=== PATIENT | female | born 1950 | race Caucasian/White ===

== ENCOUNTER → 2024-05-09 | Outpatient (CLI) | payer MEDICARE, MEDICAID, SELFPAY ==
[2024-05-09 12:53] LABS: Misc Send Out* See Sep Rpt
[2024-05-09 13:16] LABS: Basophils % (Auto) 1 % (0-2.5); Eosinophils # (Auto) 0.1 Thou/mm3 (0.0-0.5); Eosinophils % (Auto) 2 % (0-10); Hematocrit 38.4 % (36.0-46.0); Immature Granulocytes % (Auto) 0 % (0-0); Immature Granulocytes Auto 0.01 Thou/mm3 (0.00-0.00); Lymphocytes # (Auto) 1.8 Thou/mm3 (1.0-4.8); Lymphocytes % (Auto) 32 % (10-50); Mean Corpuscular HGB Conc 33.9 g/dl (31.0-37.0); Mean Corpuscular Volume 92 fL (80-100); Monocytes # (Auto) 0.4 Thou/mm3 (0.0-0.8); Monocytes % (Auto) 7 % (0-12); Neutrophils # (Auto) 3.2 Thou/mm3 (1.8-7.7); Neutrophils % (Auto) 59 % (37-80); Nucleated Red Blood Cell % 0 /100 WBC (0); Platelet Count 255 Thou/mm3 (140-440); RDW Standard Deviation 43.7 fL (36.4-46.3); Red Blood Count 4.19 Miln/mm3 (4.00-5.20); White Blood Count 5.5 Thou/mm3 (3.6-11.0)
[2024-05-09 13:27] LABS: Alanine Aminotransferase 15 U/L (10-49); Albumin, Serum 4.7 gm/dL (3.4-4.8); Albumin/Globulin Ratio 2.2 (1.2-2.2); Alkaline Phosphatase 118 U/L (46-116); Anion Gap 8 (7-16); Aspartate Amino Transferase 11 U/L (0-34); BUN/Creatinine Ratio 18 Ratio (12-20); Bilirubin,Total 0.5 mg/dL (0.3-1.2); Blood Urea Nitrogen 14 mg/dL (9-23); Calcium 9.7 mg/dL (8.3-10.6); Calcium (Corrected) 9.7 mg/dL (8.5-10.1); Carbon Dioxide 27.1 mMol/L (20.0-31.0); Chloride 106 mMol/L (98-107); Creatinine (Component) 0.8 mg/dL (0.6-1.3); Globulin 2.1 gm/dL (2.3-3.5); Glucose 217 mg/dL (74-106); Osmolality,Calculated 288 (275-295); Potassium 3.7 mMol/L (3.4-5.1); Sodium 141 mMol/L (136-145); Total Protein 6.8 gm/dL (5.7-8.2); eGFR > 60 See Note
[2024-05-09 13:38] LABS: Sed Rate (ESR) 24 mm/hr (0-30)
[2024-05-17 07:11] LABS: Immunoglobulin A 187 mg/dL (70-320); hs-CRP* 1.1 mg/L; tTG Ab, IgA <1.0 U/mL
== END | disposition home or self-care (01) ==
LOC: COPL 12:27
PROVIDERS: PCP Family Medicine; Referring Provider Specialist; Visit Provider Specialist
DX: R19.7 Diarrhea, unspecified (principal); R14.0 Abdominal distension (gaseous); R10.32 Left lower quadrant pain; R10.31 Right lower quadrant pain
CPT/HCPCS: 36415; 80053; 82784; 85025; 85652; 86021; 86036; 86141; 86364; 86671

== ENCOUNTER 2024-05-19 08:15 | Day surgery (SDC) | payer MEDICARE, MEDICAID, SELFPAY ==
[2024-05-19] VITALS (14 sets, daily range): BP systolic 117–181; BP diastolic 70–104; PULSE 91–112; RESP 10–21; TEMP 36.2–36.6; O2SAT 91–99; BMI 35.7
[2024-05-19] MEDS: DiphenhydrAMINE INJ 50 MG/ML VIAL 25 MG IV (10:35)
[2024-05-19] MEDS: fentaNYL CIT INJ 50 mCg/ML AMP 2ML (ASD USE ONLY) IV (10:50)
[2024-05-19] MEDS: MIDAZOLAM INJ 1 MG/ML VIAL 2 ML (ASD USE ONLY) 2 MG IV (10:57)
[2024-05-19] MEDS: MEPERIDINE INJ 25 MG/ML VIAL (ASD USE ONLY) IV (10:57)
[2024-05-19] MEDS: ONDANSETRON INJ 2 MG/ML INJ 2 ML 4 MG IV (11:20)
== END 2024-05-19 12:20 | disposition home or self-care (01) ==
PROVIDERS: PCP Family Medicine; Referring Provider Specialist; Visit Provider Specialist
PROC: 0DBE8ZX Excision of Large Intestine, Via Natural or Artificial Opening Endoscopic, Diagnostic (ICD-10-PCS; CPT 45380; principal; 2024-05-19 09:00)
PROC: (CPT 43239; 2024-05-19 09:00)
DX: K52.9 Noninfective gastroenteritis and colitis, unspecified (principal); K63.89 Other specified diseases of intestine; K62.89 Other specified diseases of anus and rectum; K64.9 Unspecified hemorrhoids; K57.30 Diverticulosis of large intestine without perforation or abscess without bleeding; K21.00 Gastro-esophageal reflux disease with esophagitis, without bleeding; K29.70 Gastritis, unspecified, without bleeding; K29.50 Unspecified chronic gastritis without bleeding
CPT/HCPCS: 45380; 43239; A4649; J1200; J2175; J2250; J2405; J3010

== ENCOUNTER 2024-06-19 18:44 | Emergency (ER) | payer MEDICARE, MEDICAID, SELFPAY ==
[2024-06-19 19:54] VITALS: BP 119/70; PULSE 120; RESP 18; TEMP 37.1; O2SAT 95; BMI 39.5
--- NOTE | 2024-06-19 20:01 | XR_ITS ---
Examination: PA lateral chest 2 views Technique: Upright PA lateral chest 2 views Exam date and time: February 27, 20252019 hrs. Comparison July 07, 2022 Indications: Onset chest pain this morning. Findings: Normal heart size Mild increased AP dimension chest No lobar pneumonia or pulmonary edema Moderate osteopenia Impression: No lobar pneumonia or pulmonary edema
--- NOTE | 2024-06-19 20:01 | EKG_ITS ---
[facility] Test Date: 2024-06-19 Pat Name: ELSY BEAN Department: Room: - Gender: Female Senior Boiler Operator: : 1950 Requested By: Aquilino Live ([facility]) Order Number: [id number] Reading MD: Aquilino Live ([facility]) Measurements Intervals [place] Rate: 116 P: 66 [place]: 160 QRS: -34 QRSD: 85 T: 52 QT: 304 QTc: 423 Interpretive Statements SINUS TACHYCARDIA MARKED LEFT AXIS DEVIATION [QRS AXIS < -30] LOW QRS VOLTAGE IN PRECORDIAL LEADS [QRS DEFLECTION < 1.0 mV IN CHEST LEADS] POSSIBLE ANTERIOR MYOCARDIAL INFARCTION , OF INDETERMINATE AGE [30 ms Q WAVE IN V3/V4, OR R < 0.2 mV IN V4] Compared to ECG 07/07/2022 19:17:08 Sinus rhythm no longer present Myocardial infarct finding still present /store/S0/[id number]
--- NOTE | 2024-06-19 20:01 | PD.EDRME ---
Rapid Medical Screening Exam [facility] Arrival date/time: 06/19/24 18:44 73-year-old female past medical history of diabetes and is emergency department complaining of chest pain and shortness of breath for several days. Chief Complaint: Chest Pain Time Seen by Provider: 06/19/24 19:51 Vital signs: Vital Signs Temperature 98.8 F 06/19/24 19:54 Pulse Rate 120 H 06/19/24 19:54 Respiratory Rate 18 06/19/24 19:54 Blood Pressure 119/70 06/19/24 19:54 Pulse Oximetry (%) 95 06/19/24 19:54 Oxygen Delivery Method Room Air 06/19/24 19:54 Vital signs reviewed by provider: Yes
[2024-06-19 21:35] LABS: Basophils # (Auto) 0.1 Thou/mm3 (0.0-0.2); Basophils % (Auto) 0 % (0-2.5); Eosinophils # (Auto) 0.1 Thou/mm3 (0.0-0.5); Eosinophils % (Auto) 1 % (0-10); Hematocrit 34.8 % (36.0-46.0); Hemoglobin 11.6 g/dL (12.0-16.0); Immature Granulocytes % (Auto) 1 % (0-0); Immature Granulocytes Auto 0.09 Thou/mm3 (0.00-0.00); Lymphocytes # (Auto) 1.7 Thou/mm3 (1.0-4.8); Lymphocytes % (Auto) 14 % (10-50); Mean Corpuscular HGB Conc 33.3 g/dl (31.0-37.0); Mean Corpuscular Hemoglobin 30.2 pg (25.0-35.0); Mean Corpuscular Volume 91 fL (80-100); Monocytes # (Auto) 0.7 Thou/mm3 (0.0-0.8); Monocytes % (Auto) 5 % (0-12); Neutrophils # (Auto) 9.8 Thou/mm3 (1.8-7.7); Neutrophils % (Auto) 79 % (37-80); Nucleated Red Blood Cell % 0 /100 WBC (0); Platelet Count 446 Thou/mm3 (140-440); RDW Standard Deviation 44.2 fL (36.4-46.3); Red Blood Count 3.84 Miln/mm3 (4.00-5.20); White Blood Count 12.5 Thou/mm3 (3.6-11.0)
[2024-06-19 21:53] LABS: INR 1.1 (0.9-1.3); Partial Thromboplastin Time 25.8 Seconds (22.0-36.0); Prothrombin Time 11.5 Seconds (9.0-12.2)
[2024-06-19 21:56] LABS: B-Type Natriuretic Peptide < 20 pg/mL (0-100)
[2024-06-19 22:01] LABS: Alanine Aminotransferase 8 U/L (10-49); Albumin, Serum 4.6 gm/dL (3.4-4.8); Albumin/Globulin Ratio 1.3 (1.2-2.2); Alkaline Phosphatase 156 U/L (46-116); Anion Gap 8 (7-16); Aspartate Amino Transferase 14 U/L (0-34); BUN/Creatinine Ratio 15 Ratio (12-20); Bilirubin,Total 0.5 mg/dL (0.3-1.2); Blood Urea Nitrogen 15 mg/dL (9-23); Calcium 10.2 mg/dL (8.3-10.6); Calcium (Corrected) 10.2 mg/dL (8.5-10.1); Chloride 97 mMol/L (98-107); Estimated Creatinine Clearance 68.6 mL/min (>60); Globulin 3.5 gm/dL (2.3-3.5); Osmolality,Calculated 282 (275-295); Potassium 5.1 mMol/L (3.4-5.1); Sodium 131 mMol/L (136-145); Total Protein 8.1 gm/dL (5.7-8.2); Troponin I < 0.002 ng/mL (0.0-0.045); eGFR 60 See Note
[2024-06-19 22:07] LABS: Glucose 442 mg/dL (74-106)
[2024-06-20 01:11] VITALS: BP 132/86; PULSE 107; RESP 17; TEMP 37.1; O2SAT 97
--- NOTE | 2024-06-20 01:13 | EDNOTE_ITS ---
ED Chest Pain RME/HPI General Chief Complaint: Chest Pain Stated Complaint: CHEST PAIN, SOB, SORE THROAT, NAUSEA Time Seen by Provider: 06/19/24 19:51 Arrival date/time: 06/19/24 18:44 RME / HPI RME / HPI narrative: 06/19/24 18:44 73-year-old female past medical history of diabetes and is emergency department complaining of chest pain and shortness of breath for several days. Chief complaint: Throat pain and RT sided chest pain HPI: Ms Delgadillo is a 73 year old female with past medical history of depression, asthma, COPD, essential hypertention, GERD, hypercholesterolemia, diverticulosis and IDDM, who presented to the ED with fever and chills, throat pain x2 weeks and new onset RT sided chest pain x1 day. She also endorses productive cough with whitish-yellow sputum. Her symptoms progressively worsened over the last 2 weeks and the new onset chest pain prompted her to come to ED. She endorses some SOB on exertion, likely due to her COPD. Patient uses oxygen at home as needed, nebulizer and breo. She endorses constant RT chest pain, behind her RT breast, which does not exacerbate with exertion and is not reproducible with movement/stretching. Patient has had intermittent fever and chills over the last week and worsening tonsillar pain on swallowing. She denies having any cardiac conditions. She claims to have poor blood sugar control as she ran out of her freestyle. Surgical history: Recent EGD and Colonoscopy - esophagitis and diverticulosis Allergies: NKFDA Social history: Marital?Status:?Seperated Tobacco?Use:?Denies, but has had second hand exposure ETOH?Use:?Denies Drug?Note:?Denies Social?History?Note:?Lives?at home with daughter and younger brother Family history: Father - brain tumor, mother - bone cancer and brother - brain tumor 2/2 radiation exposure in miliatry MD complaint: other Onset (ago): hour(s) Duration: constant Onset: during rest Pain location: right chest Severity: moderate Severity scale (1-10): 5 Quality: aching Pain radiation: none Relieving factors: nothing Exacerbating factors: nothing Associated symptoms: leg swelling Related Data Home Medications ?Medication ?Instructions ?Recorded ?Confirmed lisinopril 20 mg tablet 20 mg PO QDAY HBP #0 tabs 02/17/14 05/19/24 omeprazole 20 mg capsule,delayed 20 mg PO QDAY 04/27/18 05/19/24 release fluticasone furoate 200 1 inh inhalation QDAY 10/28/18 05/19/24 mcg-vilanterol 25 mcg/dose inhalation powder (Breo Ellipta) fluoxetine 20 mg capsule 20 mg PO QDAY 02/01/19 05/19/24 insulin glargine 100 60 unit subcut QDAY 04/09/22 05/19/24 unit-lixisenatide 33 mcg/mL subcutaneous pen (Soliqua 100/33) pregabalin 50 mg capsule 50 mg PO BID 04/09/22 05/19/24 rosuvastatin 20 mg tablet 20 mg PO QDAY 04/09/22 05/19/24 vibegron 75 mg tablet (Gemtesa) 75 mg PO QDAY 04/09/22 05/19/24 vortioxetine 20 mg tablet 20 mg PO QDAY 04/09/22 05/19/24 (Trintellix) Previous Rx's ?Medication ?Instructions ?Recorded flash glucose sensor (FreeStyle #1 ea 04/10/22 Pao 14 Day Sensor kit) pen needle, diabetic, safety 31 #100 ea 04/10/22 gauge x 3/16 (Assure ID Pen Needle) Allergies Allergy/AdvReac Type Severity Reaction Status Date / Time bee venom protein (honey bee) Allergy Severe Anaphylaxis Verified 05/19/24 09:04 cephalexin [From Keflex] Allergy Severe Rash Verified 05/19/24 09:04 Latex, Natural Rubber Allergy Severe Rash Verified 05/19/24 09:04 Penicillins Allergy Intermediate Swelling Verified 05/19/24 09:04 of Throat and rash strawberry Allergy Intermediate Rash Verified 05/19/24 09:04 hydromorphone Allergy Mild RASH, Verified 05/19/24 09:04 ITCHING cisapride [From Propulsid] Allergy Rash Verified 05/19/24 09:04 nitroglycerin AdvReac Severe CAUSES Verified 05/19/24 09:04 MIGRAINES AND VOMITING aspirin AdvReac Intermediate Vomiting Verified 05/19/24 09:04 metoclopramide AdvReac Intermediate COLD Verified 05/19/24 09:04 SWEAT, WEAKNESS Review of Systems Review of Systems Narrative Review of Systems: GENERAL: intermittent fevers/chills , no diaphoresis. HEENT: Denies headache or visual/hearing changes. Denies nasal discharge. NEURO: Denies unusual weakness or difficulty speaking. CARDIO: Denies chest pain or palpitations. PULM: Denies SOB, coughing, or wheezing. RT chest pain behind the breast GI: Denies abdominal pain, N/V/C/D. Reports having BMs URO: Denies burning/itching/pain/urinary changes. TOBACCO ROLLER: Denies menstrual changes, hot flashes. MSK/EXT/SKIN: Denies joint/skeletal/muscle pain, issues/changes in upper or lower extremities, itchiness, or superficial pain. PSYCH: Cooperative, pleasant mood & affect. The rest of the review of systems is otherwise negative. ED Exam Narrative Physical exam: Constitutional Alert, oriented x3 and elderly, obese HEENT Vision grossly intact. Patent nares. Trachea midline. Respiratory Chest normal on inspection and diffuse soft wheezes on auscultation bilaterally. Cardiovascular S1 and S2 audible, RRR. No murmurs or carotid bruit. No gross JVD. Abdominal Soft and non tender to palpation in all quadrants. BS + Genitourinary No bladder tenderness, no flank pain. Normal to palpation. Musculoskeletal Extremities tone within normal limits. 1+ LE edema. Neurological CN II - XII grossly intact. Extremity motor and sensation grossly intact. Skin Warm, dry and intact. B/L LE higuera petechiae Psychiatric Patient has a good affect, is cooperative. Course Quality Measures VTE prophylaxis Orders Category Date Time Status CT Screening NOW Care 06/20/24 04:45 Active EKG (ED ONLY) *Do not use* NOW Care 06/19/24 20:[address] angio chest Stat Exams 06/20/24 04:45 Ordered EKG (ED Only) Stat Exams 06/19/24 20:01 Draft XR chest 2V Stat Exams 06/19/24 20:01 Completed B-Type Natriuretic Peptide Stat Lab 06/19/24 21:01 Completed BMP [Basic Metabolic Panel] Routine Lab 06/20/24 03:00 Completed CBC Stat Lab 06/19/24 21:01 Completed Comprehensive Metabolic Panel Stat Lab 06/19/24 21:01 Completed D-Dimer Stat Lab 06/20/24 03:00 Completed Influenza A & B Rapid Panel Stat Lab 06/20/24 02:15 Completed Magnesium Stat Lab 06/19/24 21:01 Completed Partial Thromboplastin Time Stat Lab 06/19/24 21:01 Completed Prothrombin Time with INR Stat Lab 06/19/24 21:01 Completed Strep A Rapid Stat Lab 06/20/24 02:15 Completed Troponin I Stat Lab 06/19/24 21:01 Completed Urinalysis Stat Lab 06/20/24 02:30 Completed Benzocaine/Menthol [Chloraseptic Sore Throat] Med 06/20/24 01:55 Active 1 lozenge PO Q4HR PRN Dextrose 50% Syr [D50w Syringe Abboject] Med 06/20/24 04:06 Active 50 ml IV Q15MIN PRN Glucagon Inj Med 06/20/24 04:06 Active 1 mg IM Q15MIN PRN INSULIN LISPRO (AdmeLOG) [HumaLOG] Med 06/20/24 07:30 Active See Protocol SC ACHS Insulin Regular Med 06/20/24 01:55 Discontinued 10 unit IV X1 ONE Sodium Chloride 0.9% 1000 ml [Ns] 1,000 ml Med 06/20/24 01:54 Active IV 125 mls/hr Sodium Chloride 0.9% 500 ml [Ns] 500 ml Med 06/20/24 01:54 Discontinued IV 999 mls/hr Vital Signs Vital signs: Vital Signs Temperature 98.8 F 06/19/24 19:54 Pulse Rate 120 H 06/19/24 19:54 Respiratory Rate 18 06/19/24 19:54 Blood Pressure 119/70 06/19/24 19:54 Pulse Oximetry (%) 95 06/19/24 19:54 Oxygen Delivery Method Room Air 06/19/24 19:54 Chest Pain Patient data External records reviewed:: [facility] previous records Clinical information provided by:: patient Social determinants that could affect healthcare access:: none Patient has the following chronic illnesses:: 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 dementia, Alzeihmer's, essential hypertension, hypercholesterolemia and ?hx of DVT How is presenting disease/condition affected by chronic disease/condition?: exacerbated by Evaluation data The following diagnostics were reviewed and interpreted by me:: lab results and radiology exam(s) Lab and/or radiology exams considered but not ordered:: CTA Chest Interpretation Summary: Pending official result Medications / Prescriptions Medications or Prescriptions considered but not ordered:: Protonix, zofran Medication administrations:: Medication Administration History Benzocaine (Benzocaine/Menthol 1 Lozenge) 1 lozenge PO Q4HR PRN PRN Reason: SORE THROAT Stop: 07/20/24 01:54 Dextrose (Dextrose 50%-Water Inj 50 Ml Syringe) 50 ml IV Q15MIN PRN PRN Reason: BG <50 OR BG <70 & pt unresponsive Stop: 07/20/24 04:05 Glucagon (Glucagon Inj 1 Mg Vial) 1 mg IM Q15MIN PRN PRN Reason: BG <70, and no IV access Sodium Chloride (Ns) 1,000 mls @ 125 mls/hr IV .Q8H ONE Stop: 06/20/24 09:53 Last Admin: 06/20/24 03:02 Dose: 125 mls/hr Documented By: MARICRUZ Insulin Human Lispro (Insulin Lispro (Admelog) 1 Unit/0.01 Ml Unit) 0 unit SC [facility]; Protocol Stop: 07/20/24 07:29 Discontinued Medications Sodium Chloride (Ns) 500 mls @ 999 mls/hr IV .Q31M ONE Stop: 06/20/24 02:24 Last Infusion: 06/20/24 03:38 Dose: Infused Documented By: Admin: 06/20/24 03:03 Dose: 999 mls/hr Documented By: MARICRUZ Insulin Human Regular (Insulin Hum Regular 1 Unit/0.01 Ml (Per Unit)) 10 unit IV X1 ONE Stop: 06/20/24 01:56 Last Admin: 06/20/24 02:55 Dose: 10 unit Documented By: MARICRUZ Co-signed By: GRIFFIN Continue Consultations Consultation(s) initiated? (list below): No Consultation #1 (Physician, Specialty, Details): None Diagnosis Chest Pain Differential Diagnosis: atypical chest pain and costochondritis Most likely diagnosis given after review of the tests above:: Pending r/o PE Admission Indicated Admission indicated?: indicated Admission Request Was there a request for admission?: Yes Admission Attestation Admission request attestation: Discussed case with [] from Hospitalist service regarding admission. Discussed patients ED course, exam findings, labs, and radiology results. The Hospitalist [agrees,declines] to accept the patient for admission. Disposition Plan Disposition Plan: Admit Discharge Attestation Discharge Attestation: Plan: Patient is a 73-year-old female who presented to the ED with severe sore throat, intermittent fever spikes and new onset right-sided chest pain. D-dimer elevated > 800, pending CTA chest to rule out pulmonary embolism. Discharge Plan Prescriptions/Referrals Prescriptions/Med Rec: No Action lisinopril 20 MG tablet 20 mg PO QDAY Qty: 0 omeprazole 20 mg Capsule,Delayed Release(Dr/Ec) 20 mg PO QDAY fluticasone furoate-vilanterol [Breo Ellipta] 200-25 mcg/dose Blister With Device 1 inh INHALATION QDAY fluoxetine 20 mg Capsule 20 mg PO QDAY rosuvastatin 20 mg tablet 20 mg PO QDAY pregabalin 50 mg capsule 50 mg PO BID Trintellix 20 mg tablet 20 mg PO QDAY Soliqua 100/33 100 unit-33 mcg/mL insulin pen 60 unit SUBCUT QDAY Gemtesa 75 mg tablet 75 mg PO QDAY (DME) FreeStyle Pao 14 Day Sensor Kit See Rx Instructions .Route Qty: 1 0RF Rx Instructions: As directed (DME) pen needle, diabetic, safety [Assure ID Pen Needle] 31 gauge x 3/16 needle See Rx Instructions .Route Qty: 100 0RF Rx Instructions: As directed Referrals: Pete Cruz MD [Primary Care Provider] - In 1 week Problem List Clinical Impression: Chest pain Patient/Caregiver Discharge Instructions Print Language: Yoruba
[2024-06-20 01:53] VITALS: BP 133/90; PULSE 82; RESP 18; O2SAT 98
[2024-06-20] MEDS: INSULIN HUM REGULAR 1 UNIT/0.01 ML (PER UNIT) 10 UNIT IV (02:55)
[2024-06-20 03:01] LABS: Collection Type, Urine Clean Catch
[2024-06-20] MEDS: SODIUM CHLORIDE 0.9% 1000 ML 1,000 ML 125 ML IV (03:02)
[2024-06-20] MEDS: SODIUM CHLORIDE 0.9% 500 ML 500 ML 999 ML IV (03:03)
[2024-06-20 03:28] LABS: Bacteria,Urine 1+; Bilirubin,Urine Negative (Negative); Blood,Urine Trace (Negative); Budding Yeast,Urine Present; Clarity,Urine Turbid (Clear/Hazy); Color,Urine Lt-Yellow (Lt Yel-Yel); Glucose, Urine 4+ (Negative); Ketones,Urine 1+ (Negative); Leukocyte Esterase,Urine Positive (Negative); Nitrite,Urine Negative (Negative); Protein,Urine Trace (Neg - Trace); RBC,Urine 60 /hpf (0-3); Specific Gravity,Urine 1.033 (1.001-1.035); Squamous Epithelial Cell,Urine 14 /hpf (0-5); Urobilinogen,Urine Negative mg/dL (0.0-1.0); WBC,Urine 208 /hpf (0-5)
[2024-06-20 03:29] LABS: Strep A Rapid Negative (Negative)
[2024-06-20 03:37] LABS: Sperm,Urine Absent
[2024-06-20 03:52] LABS: Anion Gap 8 (7-16); BUN/Creatinine Ratio 17 Ratio (12-20); Blood Urea Nitrogen 15 mg/dL (9-23); Calcium 9.8 mg/dL (8.3-10.6); Carbon Dioxide 26.7 mMol/L (20.0-31.0); Chloride 100 mMol/L (98-107); Creatinine (Component) 0.9 mg/dL (0.6-1.3); Estimated Creatinine Clearance 76.3 mL/min (>60); Glucose 373 mg/dL (74-106); Osmolality,Calculated 285 (275-295); Potassium 4.7 mMol/L (3.4-5.1); Sodium 135 mMol/L (136-145); eGFR > 60 See Note
[2024-06-20 03:54] LABS: D-Dimer 810 ng/mL (<600)
[2024-06-20 03:58] VITALS: BP 155/82; PULSE 102; RESP 17; O2SAT 95
--- NOTE | 2024-06-20 04:45 | XR_ITS ---
Examination: CTA chest with intravenous contrast 2-D reconstructions 3-D reconstructions, vascular Date and time of exam: June 20, 2024 0535 hrs. Indications: Chest pain shortness of breath nausea difficulty breathing today CTDI: vol (mGy) 20.74 DLP: (mGycm) 563 Technique: Multiple axial sections of the thorax have been obtained. 3 mm slice thickness, from below the hemidiaphragms to above the apices of the lungs. Mediastinal and lung density settings have been obtained. 2-D sagittal and coronal reconstructions. 3-D angiographic renderings, 3-D volume renderings, 3D post processing, vascular maximum intensity projections obtained. Contrast administered is 100 cc Isovue-370 intravenous. Low dose protocols were performed. One or more of the following dose reduction techniques were used; automated exposure control, adjustment of the mA and/or KV according to patient size, use of iterative reconstruction technique. Findings: No thoracic aortic aneurysm dilatation Pulmonary artery segments are not enlarged. No pulmonary artery emboli No paratracheal tracheobronchial or bronchopulmonary adenopathy No lobar pneumonia or pulmonary edema or pleural disease Liver moderately enlarged with nodular contour Mild splenomegaly Absent gallbladder No pancreatic or adrenal mass Moderate bilateral renal parenchymal scar formation Mass lateral margin right kidney at least 3.5 cm with irregular contours Impression: Negative for pulmonary artery emboli Recommend repeat renal sonography to assess mass lateral margin right kidney, complex renal cyst, renal tumor not excluded
--- NOTE | 2024-06-20 06:05 | PRELIM_ITS ---
CT angiogram of the chest with intravenous contrast (axial sections with sagittal and coronal reforma ts) June 20, 2024 at 0535 hours Clinical History: Rule out pulmonary thromboembolism. Technique:H elical axial sections with sagittal and coronal reformats of the chest were obtained with intravenous contrast. Iterative reconstruction technique was employed to reduce patient radiation exposure. 3D/M IP reconstructed images were also provided. Comparison: No prior study is available for comparison. F indings:There is no filling defect within the pulmonary artery divisions to suggest pulmonary thrombo embolism. The mediastinum demonstrates no evidence of mass or lymphadenopathy. The thoracic aorta dem onstrates mild atheromatous calcification without evidence of aneurysm. Coronary artery calcification is noted. There is no pericardial effusion. Bibasilar streaky atelectasis is present. No evidence of pleural effusion or pneumothorax.Degenerative changes are identified in the spine. The bones are ost eopenic. The liver demonstrates a nodular contour, which may represent cirrhosis. Mild splenomegaly. Nonspecific perinephric fat stranding is noted bilaterally. The gallbladder is surgically absent. The re is a 3.5 cm slightly complex cyst in the right kidney. Impression:No CT evidence of pulmonary thro mboembolism or other acute intrathoracic pathology.Other findings as described above. Report Electro nically Signed By: Gulshan Hernandez 06/20/2024 6:04:25 AM [EST]
[2024-06-20 06:12] VITALS: BP 114/72; PULSE 101; RESP 17; TEMP 37; O2SAT 96
[2024-06-20] MEDS: cefTRIAXone/D5w 1gm IV premix 50 ML IV (06:19)
--- NOTE | 2024-06-20 07:43 | EDNOTE_ITS ---
Emergency Room Addendum Addendum Narrative: I took over the care from Dr. Hansen at 6 AM, see his notes for complete H&P and ED course. I reviewed all diagnostic test results. My interpretation of the EKG is sinus rhythm with nonspecific ST?T changes. My interpretation of the chest x-ray is no acute findings. My review of the chest CT report is no PE. Blood tests and urine tests remarkable for bacterial and yeast UTI. At this point, diagnoses include UTI. Treatment here included Rocephin. Recommended a trial of outpatient treatment. Based on my best medical judgment, made decision no further evaluation or treatment indicated at this time. Patient understands and agrees to the dischar ge instructions customized and printed, see below. Discharge instructions from Dr. Dominguez: 1. After extensive evaluation, there is no life-threatening condition such as heart attack or pulmonary embolism (blood clots in your lungs). You have UTI (see attached handout) but there is no more serious infection such as sepsis. 2. Take cefdinir to kill the germs causing the infection.? Increase oral fluid to flush it out.? Maintain clear urine.? If dark or yellow, increase oral fluid. 3. Tylenol with codeine for severe pain. 4. See a private doctor on 06/23/2024 for recheck.? Ask to review all test results and official radiology reports, to make sure you receive all necessary follow-ups and monitoring. Ask to check the final urine culture results from today to make sure cefdinir doesn't need to be changed due to resistance. To make sure there is no serious underlying heart condition, ask to help you get more tests for your heart that cannot be done here in the ER. Such as Holter Mo nitor (cardiac monitoring at home from a day to even a month), heart stress test (on treadmill or with medication), echocardiogram (imaging of your heart structures), heart catherization (checking for blockages in your heart arteries), and a referral to see a Ornamental Iron Worker Apprentice. 5. Seek immediate medical care with worsening, fever, or with any concerns. Nikhil Dominguez MD
[2024-06-20 08:31] VITALS: BP 143/80; PULSE 99; RESP 17; TEMP 36.8; O2SAT 96
== END 2024-06-20 08:54 | disposition home or self-care (01) ==
PROVIDERS: Student in an Organized Health Care Education/Training Program; Emergency Provider Emergency Medicine; PCP Family Medicine
DX: R07.89 Other chest pain (principal); B37.49 Other urogenital candidiasis; I10 Essential (primary) hypertension; E78.00 Pure hypercholesterolemia, unspecified; R00.0 Tachycardia, unspecified; E11.9 Type 2 diabetes mellitus without complications; Z79.4 Long term (current) use of insulin
CPT/HCPCS: 36415; 71046; 71275; 80048; 80053; 81001; 83735; 83880; 84484; 85025; 85379; 85610; 85730; 87086; 87400; 87502; 87651; 93005; 96365; 99285; A4649; J0696; J1815; J7030; J7040; Q9967

== ENCOUNTER → 2024-07-11 | Outpatient (CLI) | payer MEDICARE, MEDICAID, SELFPAY ==
[2024-07-11 12:33] LABS: Basophils # (Auto) 0.1 Thou/mm3 (0.0-0.2); Basophils % (Auto) 1 % (0-2.5); Eosinophils # (Auto) 0.1 Thou/mm3 (0.0-0.5); Eosinophils % (Auto) 1 % (0-10); Hematocrit 36.1 % (36.0-46.0); Hemoglobin 11.5 g/dL (12.0-16.0); Immature Granulocytes % (Auto) 1 % (0-0); Immature Granulocytes Auto 0.07 Thou/mm3 (0.00-0.00); Lymphocytes # (Auto) 1.7 Thou/mm3 (1.0-4.8); Lymphocytes % (Auto) 16 % (10-50); Mean Corpuscular HGB Conc 31.9 g/dl (31.0-37.0); Mean Corpuscular Hemoglobin 29.5 pg (25.0-35.0); Mean Corpuscular Volume 93 fL (80-100); Monocytes # (Auto) 0.6 Thou/mm3 (0.0-0.8); Monocytes % (Auto) 6 % (0-12); Neutrophils % (Auto) 76 % (37-80); Nucleated Red Blood Cell % 0 /100 WBC (0); Platelet Count 510 Thou/mm3 (140-440); RDW Standard Deviation 47.5 fL (36.4-46.3); White Blood Count 10.5 Thou/mm3 (3.6-11.0)
[2024-07-11 13:05] LABS: Albumin, Serum 4.7 gm/dL (3.4-4.8); Anion Gap 8 (7-16); BUN/Creatinine Ratio 21 Ratio (12-20); Blood Urea Nitrogen 17 mg/dL (9-23); Carbon Dioxide 28.9 mMol/L (20.0-31.0); Chloride 97 mMol/L (98-107); Creatinine (Component) 0.8 mg/dL (0.6-1.3); Glucose 258 mg/dL (74-106); Osmolality,Calculated 278 (275-295); Phosphorous 3.9 mg/dL (2.4-5.1); Potassium 4.6 mMol/L (3.4-5.1); Sodium 134 mMol/L (136-145); eGFR > 60 See Note
== END | disposition home or self-care (01) ==
PROVIDERS: PCP Family Medicine; Referring Provider Family Medicine; Visit Provider Family Medicine
DX: E11.65 Type 2 diabetes mellitus with hyperglycemia (principal)
CPT/HCPCS: 36415; 80069; 85025

== ENCOUNTER 2024-07-21 10:55 | Emergency (ER) | payer MEDICARE, MEDICAID, SELFPAY ==
[2024-07-21 11:00] VITALS: BP 84/60; BP 90/58; PULSE 97; RESP 20; TEMP 37.3; O2SAT 100
--- NOTE | 2024-07-21 11:30 | EKG_ITS ---
[facility] Test Date: 2024-07-21 Pat Name: ELSY BEAN Department: Room: - Gender: Female Client Business Manager: : 1950 Requested By: Dilip Mary Order Number: [id number] Reading MD: Dilip Mary Measurements Intervals [place] Rate: 77 P: 75 [place]: 176 QRS: -11 QRSD: 84 T: 49 QT: 394 QTc: 448 Interpretive Statements SINUS RHYTHM LOW QRS VOLTAGE IN PRECORDIAL LEADS [QRS DEFLECTION < 1.0 mV IN CHEST LEADS] Compared to ECG 06/19/2024 20:06:23 Sinus tachycardia no longer present Left-axis deviation no longer present Myocardial infarct finding no longer present /store/S0/[id number]
--- NOTE | 2024-07-21 11:32 | PD.EDABDPN ---
ED Abdominal Pain RME/HPI General Chief Complaint: Abdominal Pain Stated complaint: NEAR SYCROPE Time seen by provider: 07/21/24 11:29 Arrival date/time: 07/21/24 10:55 RME / HPI RME / HPI narrative: 74-year-old female patient with significant history of diabetes mellitus hypertension, came in for evaluation regarding lower abdominal pain. Onset of symptoms for the last 6 days as worsening lower abdominal pain, this morning, patient pain is getting worse, was taking ibuprofen with no relief. Patient went to PCP today for checkup regarding abdominal pain however while in the waiting area, in the office, patient developed near syncope. Patient was brought in by EMS. On my initial evaluation patient was noted to be hypotensive, blood pressure of high 80s systolic. Patient denies any vomiting denies any fever denies any diarrhea or constipation. Abdominal surgeries include cholecystectomy in the past. Related Data Home Medications ?Medication ?Instructions ?Recorded ?Confirmed lisinopril 20 mg tablet 20 mg PO QDAY HBP #0 tabs 02/17/14 05/19/24 omeprazole 20 mg capsule,delayed 20 mg PO QDAY 04/27/18 05/19/24 release fluticasone furoate 200 1 inh inhalation QDAY 10/28/18 05/19/24 mcg-vilanterol 25 mcg/dose inhalation powder (Breo Ellipta) fluoxetine 20 mg capsule 20 mg PO QDAY 02/01/19 05/19/24 insulin glargine 100 60 unit subcut QDAY 04/09/22 05/19/24 unit-lixisenatide 33 mcg/mL subcutaneous pen (Soliqua 100/33) pregabalin 50 mg capsule 50 mg PO BID 04/09/22 05/19/24 rosuvastatin 20 mg tablet 20 mg PO QDAY 04/09/22 05/19/24 vibegron 75 mg tablet (Gemtesa) 75 mg PO QDAY 04/09/22 05/19/24 vortioxetine 20 mg tablet 20 mg PO QDAY 04/09/22 05/19/24 (Trintellix) Previous Rx's ?Medication ?Instructions ?Recorded flash glucose sensor (FreeStyle #1 ea 04/10/22 Pao 14 Day Sensor kit) pen needle, diabetic, safety 31 #100 ea 04/10/22 gauge x 3/16 (Assure ID Pen Needle) acetaminophen 300 mg-codeine 30 mg 2 tab PO TID PRN pain #20 tabs 06/20/24 tablet cefdinir 300 mg capsule 300 mg PO BID #14 caps 06/20/24 Allergies Allergy/AdvReac Type Severity Reaction Status Date / Time bee venom protein (honey bee) Allergy Severe Anaphylaxis Verified 05/19/24 09:04 cephalexin (From Keflex) Allergy Severe Rash Verified 05/19/24 09:04 Latex, Natural Rubber Allergy Severe Rash Verified 05/19/24 09:04 Penicillins Allergy Intermediate Swelling Verified 05/19/24 09:04 of Throat and rash strawberry Allergy Intermediate Rash Verified 05/19/24 09:04 hydromorphone Allergy Mild RASH, Verified 05/19/24 09:04 ITCHING cisapride (From Propulsid) Allergy Rash Verified 05/19/24 09:04 nitroglycerin AdvReac Severe CAUSES Verified 05/19/24 09:04 MIGRAINES AND VOMITING aspirin AdvReac Intermediate Vomiting Verified 05/19/24 09:04 metoclopramide AdvReac Intermediate COLD Verified 05/19/24 09:04 SWEAT, WEAKNESS Review of Systems Review of Systems Narrative Review of Systems: Review of system reviewed and within normal limits except mentioned in HPI ED Exam Narrative Physical exam: VITAL SIGNS: Reviewed. GENERAL APPEARANCE: Alert and interactive, follows commands, no acute distress, HEAD AND FACE: Non-traumatic. ENT: PERRL, pink conjunctivitis, eyelid no trauma, Mucous membrane moist. NECK: Supple, nontender, no nuchal rigidity. CHEST: No tenderness, no crepitus, no paradoxical movement, no retractions. LUNGS: Clear, well ventilated, symmetric, no rales, no wheezing, no ronchi, no stridor, good breath sounds bilaterally. HEART: Regular rate, regular rhythm, no murmur, no gallops. ABDOMEN: Soft, positive bowel sounds, nondistended, no guarding, lower abdominal tenderness on palpation, no rebound, no masses, RECTAL: Deferred. GENITAL: Deferred. NEUROLOGICAL: Gross motor function intact sensory function intact, Appropriate for age. MUSCULOSKELETAL: low back nontender, full range of motion. EXTREMITIES: Nontender, full range of motion. SKIN: Color pink, dry, no rash, no lacerations, no abrasions, no contusions. LYMPHATICS: Deferred. Course Quality Measures none Orders Category Date Time Status CT Screening NOW Care 07/21/24 14:05 Active EKG (ED ONLY) *Do not use* NOW Care 07/21/24 11:30 Completed Referral - Supervisor Inspection Room Stat Cons 07/21/24 17:[address] abdomen pelvis w con Stat Exams 07/21/24 14:05 Completed EKG (ED Only) Stat Exams 07/21/24 11:30 Draft BNP [B-Type Natriuretic Peptide] Stat Lab 07/21/24 13:01 Completed CBC Stat Lab 07/21/24 13:01 Completed Comprehensive Metabolic Panel Stat Lab 07/21/24 13:01 Completed Lipase Stat Lab 07/21/24 13:01 Completed Partial Thromboplastin Time Stat Lab 07/21/24 13:01 Completed Prothrombin Time with INR Stat Lab 07/21/24 13:01 Completed Troponin I Stat Lab 07/21/24 13:01 Completed UA, C/S IF [Urinalysis, C/S if Indicated] Stat Lab 07/21/24 13:34 Completed Urine Culture Stat Lab 07/21/24 13:34 Received Ciprofloxacin HCl [Ciprofloxacin] Med 07/21/24 14:05 Discontinued 500 mg PO X1 ONE Ketorolac Inj [Toradol Inj] Med 07/21/24 11:30 Discontinued 30 mg IVP X1 ONE Morphine Inj Med 07/21/24 21:29 Once 4 mg IVP X1 ONE Ondansetron Inj [Zofran Inj] Med 07/21/24 11:30 Discontinued 4 mg IV X1 ONE Ondansetron Inj [Zofran Inj] Med 07/21/24 21:29 Once 4 mg IV X1 ONE Sodium Chloride 0.9% 1000 ml [Ns] 1,000 ml Med 07/21/24 11:30 Discontinued IV 999 mls/hr Vancomycin Inj 1,000 mg Med 07/21/24 17:30 Discontinued Sodium Chloride 0.9% 250 ml [Ns] 250 ml IV X1 Vital Signs Vital signs: Vital Signs Temperature 99.1 F 07/21/24 11:00 Pulse Rate 97 07/21/24 11:00 Respiratory Rate 20 07/21/24 11:00 Blood Pressure 90/58 L 07/21/24 11:00 Pulse Oximetry (%) 100 07/21/24 11:00 Oxygen Delivery Method Room Air 07/21/24 11:00 Oxygen Flow Rate 4 07/21/24 11:00 Abdominal Pain MDM MDM Narrative [facility] Narrative:: 74-year-old female patient with significant history of diabetes mellitus hypertension, came in for evaluation regarding lower abdominal pain. Onset of symptoms for the last 6 days as worsening lower abdominal pain, this morning, patient pain is getting worse, was taking ibuprofen with no relief. Patient went to PCP today for checkup regarding abdominal pain however while in the waiting area, in the office, patient developed near syncope. Patient was brought in by EMS. On my initial evaluation patient was noted to be hypotensive, blood pressure of high 80s systolic. Patient denies any vomiting denies any fever denies any diarrhea or constipation. Abdominal surgeries include cholecystectomy in the past. Patient's workup is significant for leukocytosis of 11.8 neutrophil of 8.9. Patient's creatinine was noted to be normal. Urinalysis positive for UTI. CT scan of the abdomen and pelvis showed No focal liver or splenic lesions Absent gallbladder No pancreatic or adrenal mass Low density mass with thick neely and marked inflammatory change lateral margin right kidney, 5.7 x 4.8 cm most consistent with renal abscess Aorta normal size No bowel obstruction Normal appendix 3 cm fat-containing umbilical hernia No diverticulitis No bladder mass Moderate osteopenia Impression: Findings most consistent with 5.7 x 4.8 cm right renal abscess Patient received IV fluids, IV vancomycin. Patient needs to be transferred to higher level care order is to urology and IR can drain the abscess. Patient was accepted to [facility], accepting MD Dr. Walsh Patient data External records reviewed:: None Clinical information provided by:: patient Social determinants that could affect healthcare access:: none Patient has the following chronic illnesses:: Diabetes mellitus How is presenting disease/condition affected by chronic disease/condition?: exacerbated by Evaluation data The following diagnostics were reviewed and interpreted by me:: lab results and radiology exam(s) Lab and/or radiology exams considered but not ordered:: None Interpretation Summary: See results in MDM EKG showed sinus rhythm, ventricular rate of 77 bpm, no ST segment elevation or depression noted. Medications / Prescriptions Medications or Prescriptions considered but not ordered:: None Medication administrations:: Medication Administration History Morphine Sulfate (Morphine Sulf Inj 10 Mg/Ml Vial) 4 mg IVP X1 ONE Stop: 07/21/24 21:30 Ondansetron HCl (Ondansetron Inj 2 Mg/Ml Inj 2 Ml) 4 mg IV X1 ONE; Protocol Stop: 07/21/24 21:30 Discontinued Medications Ciprofloxacin (Ciprofloxacin Hcl 250 Mg Tablet) 500 mg PO X1 ONE Stop: 07/21/24 14:06 Last Admin: 07/21/24 14:47 Dose: 500 mg Documented By: AYE Sodium Chloride (Ns) 1,000 mls @ 999 mls/hr IV .Q1H1M ONE Stop: 07/21/24 12:30 Last Infusion: 07/21/24 12:00 Dose: 0 mls/hr Documented By: Admin: 07/21/24 11:48 Dose: 999 mls/hr Documented By: AYE Vancomycin HCl 1,000 mg/ (Sodium Chloride) 250 mls @ 150 mls/hr IV X1 ONE Stop: 07/21/24 19:09 Last Infusion: 07/21/24 20:00 Dose: Infused Documented By: Admin: 07/21/24 17:51 Dose: 150 mls/hr Documented By: AYE Ketorolac Tromethamine (Ketorolac Inj 30 Mg/Ml Vial) 30 mg IVP X1 ONE Stop: 07/21/24 11:31 Last Admin: 07/21/24 11:49 Dose: 30 mg Documented By: AYE Ondansetron HCl (Ondansetron Inj 2 Mg/Ml Inj 2 Ml) 4 mg IV X1 ONE; Protocol Stop: 07/21/24 11:31 Last Admin: 07/21/24 11:49 Dose: 4 mg Documented By: AYE Patient received IV fluids for hydration, vancomycin IV, and Zofran. Patient was also given Cipro p.o. Consultations Consultation(s) initiated? (list below): No Diagnosis Differential diagnosis abdominal pain: abdominal pain and diverticulitis Most likely diagnosis given after review of the tests above:: Right renal abscess Admission Indicated Admission indicated?: not indicated Admission Request Was there a request for admission?: No Disposition Plan Disposition Plan: Transfer Discharge Plan Plan Patient Disposition: [facility] Pt Being Transferred to: [facility] Disposition Comment: Stable Prescriptions/Referrals Prescriptions/Med Rec: No Action lisinopril 20 MG tablet 20 mg PO QDAY Qty: 0 omeprazole 20 mg Capsule,Delayed Release(Dr/Ec) 20 mg PO QDAY fluticasone furoate-vilanterol [Breo Ellipta] 200-25 mcg/dose Blister With Device 1 inh INHALATION QDAY fluoxetine 20 mg Capsule 20 mg PO QDAY rosuvastatin 20 mg tablet 20 mg PO QDAY pregabalin 50 mg capsule 50 mg PO BID Trintellix 20 mg tablet 20 mg PO QDAY Soliqua 100/33 100 unit-33 mcg/mL insulin pen 60 unit SUBCUT QDAY Gemtesa 75 mg tablet 75 mg PO QDAY (DME) FreeStyle Pao 14 Day Sensor Kit See Rx Instructions .Route Qty: 1 0RF Rx Instructions: As directed (DME) pen needle, diabetic, safety [Assure ID Pen Needle] 31 gauge x 3/16 needle See Rx Instructions .Route Qty: 100 0RF Rx Instructions: As directed acetaminophen-codeine 300-30 mg tablet 2 tab PO TID MDD 6 PRN (Reason: pain) Qty: 20 0RF cefdinir 300 mg capsule 300 mg PO BID Qty: 14 0RF Referrals: Pete Cruz MD [Primary Care Provider] - In 1 week Problem List Clinical Impression: Renal abscess, right Patient/Caregiver Discharge Instructions Discharge Activity: activity as tolerated Print Language: Estonian Stand Alone Forms: [facility]nes Award Info., Patient Portal Info Letter
[2024-07-21] MEDS: SODIUM CHLORIDE 0.9% 1000 ML 1,000 ML 999 ML IV (11:48)
[2024-07-21] MEDS: KETOROLAC INJ 30 MG/ML VIAL IVP (11:49)
[2024-07-21] MEDS: ONDANSETRON INJ 2 MG/ML INJ 2 ML 4 MG IV (11:49)
[2024-07-21 11:53] VITALS: BP 105/69; PULSE 102; PULSE 81; RESP 16; RESP 18; TEMP 37; O2SAT 98; BMI 31.1
[2024-07-21 13:15] LABS: Basophils % (Auto) 0 % (0-2.5); Eosinophils # (Auto) 0.2 Thou/mm3 (0.0-0.5); Eosinophils % (Auto) 2 % (0-10); Hematocrit 30.3 % (36.0-46.0); Hemoglobin 9.8 g/dL (12.0-16.0); Immature Granulocytes % (Auto) 1 % (0-0); Immature Granulocytes Auto 0.06 Thou/mm3 (0.00-0.00); Lymphocytes % (Auto) 17 % (10-50); Mean Corpuscular HGB Conc 32.3 g/dl (31.0-37.0); Mean Corpuscular Hemoglobin 29.3 pg (25.0-35.0); Mean Corpuscular Volume 91 fL (80-100); Monocytes # (Auto) 0.7 Thou/mm3 (0.0-0.8); Monocytes % (Auto) 6 % (0-12); Neutrophils # (Auto) 8.9 Thou/mm3 (1.8-7.7); Neutrophils % (Auto) 75 % (37-80); Nucleated Red Blood Cell % 0 /100 WBC (0); Platelet Count 350 Thou/mm3 (140-440); RDW Standard Deviation 46.4 fL (36.4-46.3); Red Blood Count 3.34 Miln/mm3 (4.00-5.20); White Blood Count 11.8 Thou/mm3 (3.6-11.0)
[2024-07-21 13:36] LABS: Collection Type, Urine Clean Catch
[2024-07-21 13:42] LABS: B-Type Natriuretic Peptide < 20 pg/mL (0-100)
[2024-07-21 13:43] LABS: INR 1.1 (0.9-1.3); Partial Thromboplastin Time 27.3 Seconds (22.0-36.0); Prothrombin Time 11.7 Seconds (9.0-12.2)
[2024-07-21 13:52] LABS: Bacteria,Urine 1+; Bilirubin,Urine Negative (Negative); Blood,Urine Trace (Negative); Clarity,Urine Turbid (Clear/Hazy); Color,Urine Lt-Yellow (Lt Yel-Yel); Glucose, Urine Negative (Negative); Ketones,Urine Negative (Negative); Leukocyte Esterase,Urine Positive (Negative); Nitrite,Urine Negative (Negative); PH,Urine 6.5 (5.0-7.0); Protein,Urine Trace (Neg - Trace); RBC,Urine 7 /hpf (0-3); Specific Gravity,Urine 1.013 (1.001-1.035); Squamous Epithelial Cell,Urine 10 /hpf (0-5); Urobilinogen,Urine Negative mg/dL (0.0-1.0); WBC,Urine 97 /hpf (0-5)
[2024-07-21 13:54] LABS: Alanine Aminotransferase < 7 U/L (10-49); Albumin/Globulin Ratio 1.5 (1.2-2.2); Alkaline Phosphatase 128 U/L (46-116); Anion Gap 10 (7-16); Aspartate Amino Transferase 10 U/L (0-34); BUN/Creatinine Ratio 23 Ratio (12-20); Bilirubin,Total 0.3 mg/dL (0.3-1.2); Blood Urea Nitrogen 14 mg/dL (9-23); Calcium 8.9 mg/dL (8.3-10.6); Calcium (Corrected) 8.9 mg/dL (8.5-10.1); Carbon Dioxide 26.4 mMol/L (20.0-31.0); Chloride 104 mMol/L (98-107); Creatinine (Component) 0.6 mg/dL (0.6-1.3); Estimated Creatinine Clearance 99.6 mL/min (>60); Globulin 2.6 gm/dL (2.3-3.5); Glucose 128 mg/dL (74-106); Lipase 31 U/L (12-53); Osmolality,Calculated 281 (275-295); Sodium 140 mMol/L (136-145); Total Protein 6.6 gm/dL (5.7-8.2); Troponin I < 0.002 ng/mL (0.0-0.045); eGFR > 60 See Note
[2024-07-21 13:54] LABS: Culture Indicated,Urine Yes
--- NOTE | 2024-07-21 14:05 | XR_ITS ---
Examination: CT abdomen with intravenous contrast CT pelvis with intravenous contrast 2-D coronal reconstructions 2-D sagittal reconstructions Date and time of exam:July 21, 2024 1534 hrs. Indications: Onset generalized abdominal pain today. CTDI: vol (mGy) 11.7 DLP: (mGycm) 736 Technique: Multiple axial sections of the abdomen and pelvis have been obtained. 64 slice high-resolution scanner used. 3 mm axial sections have been obtained, post intravenous injection 60 cc [id number] 2-D sagittal, coronal reconstructions obtained. Low dose protocols were performed. One or more of the following dose reduction techniques were used; automated exposure control, adjustment of the mA and/or KV according to patient size, use of iterative reconstruction technique. Findings: No focal liver or splenic lesions Absent gallbladder No pancreatic or adrenal mass Low density mass with thick neely and marked inflammatory change lateral margin right kidney, 5.7 x 4.8 cm most consistent with renal abscess Aorta normal size No bowel obstruction Normal appendix 3 cm fat-containing umbilical hernia No diverticulitis No bladder mass Moderate osteopenia Impression: Findings most consistent with 5.7 x 4.8 cm right renal abscess
[2024-07-21] MEDS: CIPROFLOXACIN HCL 250 MG TABLET 500 MG PO (14:47)
[2024-07-21 14:52] VITALS: BP 120/66; PULSE 101; RESP 18
[2024-07-21 16:09] VITALS: BP 119/59; PULSE 87; RESP 16; TEMP 36.8; O2SAT 97
[2024-07-21] MEDS: Vancomycin Inj 1,000 MG in SODIUM CHLORIDE 0.9% 250 ML 250 ML 150 MG IV (17:51)
--- NOTE | 2024-07-21 17:56 | PC.CM ---
Addendum entered by Paulino Huynh RN 07/21/24 18:47: 1841- Received call from MADELIN Corrales at [facility], patient has been accepted ER to ER, under the care of Dr. Walsh. Phone number for report is [phone]. They have asked that medical records and imaging on CD be sent with patient. Disc has been requested from radiology. Handed transfer off to [facility] at this time. Addendum entered by Paulino Huynh RN 07/21/24 18:05: Phone call to [facility] MADELIN Degroot to present case, declined as they do not have urology services available. Phone call to [facility] MADELIN Corrales, provided patient's name and basic info., she requested a packet to be sent for review, informed her that had already been done. Phone call to [facility] SADA Wright RN provided clinicals and informed of packet sent. Original Note: Transfer packet created and packets sent to [facility], [facility], and [facility], patient is needing transfer for Urology and IR services per Dr. Dominguez in the ER. Disc with images has been requested as well and will be added to transfer packet.
[2024-07-21 18:35] VITALS: BP 118/63; PULSE 90; RESP 18; TEMP 37.2; O2SAT 96
[2024-07-21] MEDS: MORPHINE SULF INJ 10 MG/ML VIAL 4 MG IVP (21:40)
== END 2024-07-21 21:43 | disposition short-term general hospital (02) ==
PROVIDERS: Nurse Practitioner Family; Emergency Provider Emergency Medicine; PCP Family Medicine
DX: N15.1 Renal and perinephric abscess (principal); N39.0 Urinary tract infection, site not specified; K42.9 Umbilical hernia without obstruction or gangrene; M85.80 Other specified disorders of bone density and structure, unspecified site; I95.9 Hypotension, unspecified; E11.9 Type 2 diabetes mellitus without complications; I10 Essential (primary) hypertension; Z90.49 Acquired absence of other specified parts of digestive tract
CPT/HCPCS: 36415; 74177; 80053; 81001; 83690; 83880; 84484; 85025; 85610; 85730; 87077; 87086; 87186; 93005; 96365; 96366; 99285; A4649; J1885; J2270; J2405; J3371; J7030; J7050; Q9967; A9270